=== PATIENT | male | born 2000 | race Caucasian/White ===

== ENCOUNTER → 2023-11-04 | Outpatient (CLI) | payer BC ==
--- NOTE | 2023-11-07 11:28 | CT ---
EXAMINATION TYPE: CT abdomen pelvis wo con CT DLP: 563 mGycm, Automated exposure control for dose reduction was used. DATE OF EXAM: 11/04/2023 2:47 PM COMPARISON: None. CLINICAL INDICATION:Male, 22 years old with history of KSP; R10.11 RIGHT UPPER QUADRANT PAIN; right f lank pain TECHNIQUE: Axial CT of the abdomen and pelvis. Sagittal and coronal reformats were created on a [employer] workstation. Contrast used: mL of , (none if empty) Oral contrast used: without Oral Contrast (none if empty) FINDINGS: Exam is limited without contrast. LOWER CHEST: Unremarkable ABDOMEN LIVER: Elongated appearance of the right lobe likely Marvel's lobe. Otherwise unremarkable. GALLBLADDER AND BILE DUCTS: Unremarkable gallbladder. No biliary ductal dilatation. PANCREAS: Unremarkable. SPLEEN: Unremarkable. ADRENAL GLANDS: Unremarkable. KIDNEYS AND URETERS: No evidence of renal calculi or contour deformity. No hydronephrosis. PELVIS BLADDER: Unremarkable REPRODUCTIVE: Unremarkable prostate. ABDOMEN & PELVIS STOMACH AND BOWEL: Stomach and small bowel are nondistended, no evidence of obstruction. What seems to be the appendix is unremarkable, and there is no inflammatory process seen in the pericecal regio n. Mild/moderate stool throughout the colon, without acute abnormality suggested. PERITONEUM/RETROPERITONEUM: No evidence of pneumoperitoneum or free fluid. VASCULATURE: Aorta and major branches are grossly unremarkable. No AAA. LYMPH NODES: No gross evidence for lymphadenopathy. SOFT TISSUE/ABDOMINAL WALL: Unremarkable MUSCULOSKELETAL: No acute osseous abnormalities. Tiny sclerotic foci in the right femoral head and a cetabulum, probably bone islands. IMPRESSION: 1. No evidence of urinary tract calculi or hydronephrosis. 2. Limited unenhanced study otherwise shows no acute inflammatory or obstructive process in the abdo men or pelvis.
== END | disposition home or self-care (01) ==
LOC: RADCTMAIN 14:10
PROVIDERS: ATTEND Family Medicine
DX: R10.11 Right upper quadrant pain (principal)
CPT/HCPCS: 74176